=== PATIENT | female | born 1940 | race Caucasian/White ===

== ENCOUNTER 2022-02-18 18:00 | Inpatient (IN) | payer OTHER ==
[~2022-02-18] VITALS: Ht 167.6 cm; Wt 106.0 kg
[2022-02-18] MEDS ORDERED: SODIUM CHLORIDE 0.9% 1,000 ML IV ONE ×2 (18:45)
[2022-02-18] MEDS ORDERED: hydrALAZINE HCL 20 MG/ML VL IV ONE (19:45)
[2022-02-18] MEDS ORDERED: CLOPIDOGREL BISULFATE 75 MG TAB PO ONE (20:15)
[2022-02-18 20:33] LABS: Basophils # (auto) 0 10 ^3/uL (0-0.2); Basophils % (auto) 0.3 % (0.0-2.0); Eosinophils # (auto) 0 10 ^3/uL (0-0.8); Eosinophils % (auto) 0.2 % (0.0-7.0); Hematocrit 46.3 % (36.0-46.0); Lymphocytes # (auto) 0.9 10 ^3/uL (0.4-5.4); Lymphocytes % (auto) 5.4 % (10.0-50.0); Mean Corpuscular Hemoglobin 28.4 pg (28.0-32.0); Mean Corpuscular Hgb Conc. 32.4 g/dL (32.0-36.0); Mean Corpuscular Volume 87.9 fL (80.0-100.0); Monocytes # (auto) 0.8 10 ^3/uL (0-1.3); Monocytes % (auto) 4.7 % (0.0-12.0); Neutrophils # (auto) 14.4 10 ^3/uL (1.6-8.6); Neutrophils % (auto) 89.4 % (37.0-80.0); Red Blood Cells 5.27 10^6/uL (4.0-5.20); Red Cell Distribution Width 14.1 % (11.8-14.3); White Blood Cell 16.1 10^3/uL (4.4-10.8)
[2022-02-18 20:50] LABS: Albumin 2.9 g/dL (3.4-5.0); Calcium 9.2 mg/dL (8.5-10.1); Potassium 3.9 mmol/L (3.5-5.1)
[2022-02-18 20:53] LABS: BUN/Creatinine Ratio 16.7; Total Protein 8.4 g/dL (6.4-8.2)
[2022-02-18] MEDS ORDERED: TEMAZEPAM 15 MG CAP PO PRN (21:15)
[2022-02-18] MEDS ORDERED: MORPHINE SULFATE INJ 2 MG/ml SYRG IV PRN (21:15)
[2022-02-18] MEDS ORDERED: ACETAMINOPHEN 325 MG TAB PO PRN (21:15)
[2022-02-18] MEDS ORDERED: DEXTROSE (50%) 50ML SYRG IV PRN (21:15)
[2022-02-18] MEDS ORDERED: NITROGLYCERIN 0.4 MG SL TAB SL PRN (21:15)
[2022-02-18] MEDS ORDERED: cloNIDine HCL 0.1 MG TAB PO PRN (21:15)
[2022-02-18] MEDS ORDERED: ONDANSETRON HCL 4 MG/2 ML VIAL IV PRN (21:15)
[2022-02-18] MEDS ORDERED: ENOXAPARIN SOD 120 MG/0.8 ML SYRINGE SC ONE (22:45)
[2022-02-18] MEDS: ATORVASTATIN 20 MG TAB PO SCH (23:42)
[2022-02-19] MEDS: InsuLIN REG 1unit/0.01ml Soln (100units/ml) SC SCH ×4 (00:08→20:15)
[2022-02-19] MEDS: ACCU-CHEK COMFORT CURVE STRIP VI SCH ×4 (00:08→18:00)
[2022-02-19 01:25] LABS: Urine Amorphous Crystal FEW /hpf (None Seen); Urine Bacteria FEW /hpf (None Seen); Urine Blood TRACE /uL (Negative); Urine Specific Gravity 1.017 (1.001-1.035); Urine WBC 1 /hpf (0 - 5)
[2022-02-19 04:07] LABS: Basophils # (auto) 0 10 ^3/uL (0-0.2); Basophils % (auto) 0.3 % (0.0-2.0); Eosinophils # (auto) 0 10 ^3/uL (0-0.8); Hematocrit 41.6 % (36.0-46.0); Hemoglobin 13.4 g/dL (12.2-16.2); Lymphocytes # (auto) 1.5 10 ^3/uL (0.4-5.4); Lymphocytes % (auto) 11.7 % (10.0-50.0); Mean Corpuscular Hemoglobin 28.5 pg (28.0-32.0); Mean Corpuscular Hgb Conc. 32.2 g/dL (32.0-36.0); Mean Corpuscular Volume 88.4 fL (80.0-100.0); Monocytes # (auto) 0.7 10 ^3/uL (0-1.3); Neutrophils # (auto) 10.3 10 ^3/uL (1.6-8.6); Red Cell Distribution Width 13.9 % (11.8-14.3); White Blood Cell 12.5 10^3/uL (4.4-10.8)
[2022-02-19 04:34] LABS: Potassium 4.8 mmol/L (3.5-5.1)
[2022-02-19 04:40] LABS: Albumin 2.4 g/dL (3.4-5.0); BUN/Creatinine Ratio 17.7; Bilirubin, Total 1.2 mg/dL (0.2-1.0); Calcium 8.6 mg/dL (8.5-10.1); Total Protein 6.5 g/dL (6.4-8.2)
[2022-02-19] MEDS ORDERED: LEVOTHYROXINE SODIUM 25 MCG TAB PO SCH (07:00)
[2022-02-19] MEDS ORDERED: ASPirin 81 mg TAB PO SCH ×2 (09:00→10:00)
[2022-02-19] MEDS ORDERED: MIDAZOLAM HCL 2MG/2ML 2ml VIAL (1mg/ml) IV PRN (09:00)
[2022-02-19 09:34] LABS: Cholesterol 109 mg/dL (< 200); HDL Cholesterol 40 mg/dL (40-59); LDL Cholesterol 62 mg/dL (< 100); Triglycerides 102 mg/dL (< 150)
[2022-02-19] MEDS ORDERED: LISINOPRIL 10 MG TAB PO SCH (10:00)
[2022-02-19] MEDS ORDERED: LISINOPRIL 20 MG TAB PO SCH (10:00)
[2022-02-19 17:52] LABS: Folate (Folic Acid) 12.81 ng/mL (5.38-24)
[2022-02-19] MEDS ORDERED: INSUINJ2 SC (20:31)
[2022-02-19] MEDS ORDERED: ATEN25TA PO (20:31)
[2022-02-19] MEDS ORDERED: BUSP10TA31 PO (20:31)
[2022-02-19] MEDS ORDERED: LISI-285 PO (20:31)
[2022-02-19] MEDS ORDERED: GLIP10TA9 PO (20:31)
[2022-02-19] MEDS ORDERED: LEVO25TA6 PO (20:31)
[2022-02-19] MEDS ORDERED: ASPI1TAB20 PO (20:31)
[2022-02-19] MEDS ORDERED: ATOR40TA52 PO (20:31)
[2022-02-19] MEDS ORDERED: SERT50TA19 PO (20:31)
[2022-02-19] MEDS ORDERED: ONDA-144 PO (20:32)
[2022-02-19] MEDS ORDERED: CHOL500014 PO (20:32)
[2022-02-19 22:00] VITALS: BP 174/73
[2022-02-19] MEDS ORDERED: PRIMIDONE 50 MG TAB PO SCH (22:00)
[2022-02-19] MEDS: ATORVASTATIN 20 MG TAB PO SCH (22:14)
[2022-02-20] MEDS: ACCU-CHEK COMFORT CURVE STRIP VI SCH
[2022-02-20] MEDS: InsuLIN REG 1unit/0.01ml Soln (100units/ml) SC SCH
[2022-02-20 05:00] VITALS: BP 153/63
== END 2022-02-20 06:10 | disposition short-term general hospital (02) | DRG 64 ==
LOC: EDBD 18:00 → ER 18:04 → EDBD 18:04 → TELE 21:11 → TELE-WESTW 02-19 18:04
PROVIDERS: ADMIT Nurse Practitioner; ATTEND Internal Medicine Nephrology
DX: I63.40 Cerebral infarction due to embolism of unspecified cerebral artery (principal); I21.A1 Myocardial infarction type 2; N17.9 Acute kidney failure, unspecified; D72.829 Elevated white blood cell count, unspecified; E07.9 Disorder of thyroid, unspecified; Z20.822 Contact with and (suspected) exposure to COVID-19; E11.22 Type 2 diabetes mellitus with diabetic chronic kidney disease; E66.01 Morbid (severe) obesity due to excess calories; E78.5 Hyperlipidemia, unspecified; F17.200 Nicotine dependence, unspecified, uncomplicated; G25.0 Essential tremor; G47.10 Hypersomnia, unspecified; I12.9 Hypertensive chronic kidney disease with stage 1 through stage 4 chronic kidney disease, or unspecified chronic kidney disease; I44.0 Atrioventricular block, first degree; M19.90 Unspecified osteoarthritis, unspecified site; N18.9 Chronic kidney disease, unspecified; Z63.9 Problem related to primary support group, unspecified; Z79.4 Long term (current) use of insulin; Z79.82 Long term (current) use of aspirin; Z79.84 Long term (current) use of oral hypoglycemic drugs; Z79.899 Other long term (current) drug therapy; Z82.49 Family history of ischemic heart disease and other diseases of the circulatory system; Z68.37 Body mass index [BMI] 37.0-37.9, adult
CPT/HCPCS: 36415; 70450; 70545; 70551; 71045; 80053; 80061; 81001; 82607; 82746; 82962; 83036; 84443; 84484; 85025; 93005; 93306; 93886; 96361; 96372; 96374; 99291; G0378; J1815

== ENCOUNTER 2023-11-01 02:33 | Emergency (ER) | payer OTHER ==
[~2023-11-01] VITALS: Ht 165.1 cm; Wt 100.0 kg
[~2023-11-01 02:33] MED LIST: ASPI1TAB20 PO; ATEN25TA PO; ATOR40TA52 PO; BUSP10TA31 PO; CHOL500014 PO; GLIP10TA9 PO; INSUINJ2 SC; LEVO25TA6 PO; LISI-285 PO; ONDA-144 PO; SERT-206 PO
[2023-11-01 03:00] VITALS: PULSE 89; RESP 18; O2SAT 94
[2023-11-01 03:10] LABS: Basophils # (auto) 0.1 10 ^3/uL (0-0.2); Basophils % (auto) 0.6 % (0.0-2.0); Eosinophils # (auto) 0.1 10 ^3/uL (0-0.8); Eosinophils % (auto) 0.6 % (0.0-7.0); Hematocrit 43.1 % (36.0-46.0); Hemoglobin 14.2 g/dL (12.2-16.2); Lymphocytes # (auto) 1.6 10 ^3/uL (0.4-5.4); Lymphocytes % (auto) 10.3 % (10.0-50.0); Mean Corpuscular Hemoglobin 30.2 pg (28.0-32.0); Mean Corpuscular Hgb Conc. 33.1 g/dL (32.0-36.0); Mean Corpuscular Volume 91.2 fL (80.0-100.0); Monocytes % (auto) 6.5 % (0.0-12.0); Red Blood Cells 4.72 10^6/uL (4.0-5.20); Red Cell Distribution Width 13.9 % (11.8-14.3); White Blood Cell 15.8 10^3/uL (4.4-10.8)
[2023-11-01 03:19] LABS: Chloride 107 mmol/L (98-107); Potassium 3.8 mmol/L (3.5-5.1); Sodium 139 mmol/L (136-145)
[2023-11-01 03:20] LABS: Anion Gap 9 (5-15); Carbon Dioxide 23 mmol/L (20-30)
[2023-11-01 03:21] LABS: Calcium 10.3 mg/dL (8.7-10.4)
[2023-11-01 03:25] LABS: Glucose 120 mg/dL (74-106)
[2023-11-01 03:26] LABS: BUN/Creatinine Ratio 18.3 (10.0-20.0); Blood Urea Nitrogen 51 mg/dL (9-23)
[2023-11-01 03:30] VITALS: BP 154/54; PULSE 61; RESP 18; TEMP 98.3; O2SAT 99
== END 2023-11-01 05:45 | disposition home or self-care (01) ==
LOC: ER 02:33 → EDBD 02:33 → ER 05:45
DX: I10 Essential (primary) hypertension (principal); E11.649 Type 2 diabetes mellitus with hypoglycemia without coma; N28.9 Disorder of kidney and ureter, unspecified; Z88.0 Allergy status to penicillin; Z79.899 Other long term (current) drug therapy
CPT/HCPCS: 36415; 80048; 84484; 85025; 93005